=== PATIENT | female | born 1960 | race Caucasian/White ===

== ENCOUNTER 2023-02-10 07:48 | Day surgery (SDC) | payer MEDICARE, SELFPAY ==
[2023-02-08 14:17] VITALS: BMI 31.8
[2023-02-10] VITALS (11 sets, daily range): BP systolic 144–152; BP diastolic 67–90; PULSE 60–90; RESP 14–18; TEMP 36.1–36.4; O2SAT 95–99
--- NOTE | 2023-02-10 09:01 | P.PN_ITS ---
[facility] Disclaimer: The information contained in this section may have been updated after the patient was seen, as this information can be updated by other users. Medical History COPD (chronic obstructive pulmonary disease) Degenerative disc disease Former smoker History of kidney stones History of pacemaker History of seizure Migraines Sick sinus syndrome Surgical History H/O cervical spinal arthrodesis H/O: hysterectomy History of appendectomy History of extraction of renal calculus History of lumbar spinal fusion Hx of cholecystectomy Family History Other Family history of cancer Social History Smoking Status: Former smoker alcohol intake: never substance use type: denies use current occupational status: unemployed Travel in the last 8 weeks: None [facility] Anesthesia Checklist Patient Identification Patient Identification: Arm Band Structural Data Admitted From: Home Planned Operative Procedure/s: Pain Pump Explant, Pain Pump Implant Consent for Planned Operative Procedure(s) Verified: Yes Verified Documents: Surgical Consent and History and Physical NPO Status Verified Time NPO: 00:00 Additional verifications Anesthesia Reactions: No Hx Blood Transfusions: No Airway Assessment C-Spine Mobility Assessed: Yes TMJ Mobility Assessed: Yes Dentition: Good Dentition Neurological Assessment Level of Consciousness: Awake and Alert Anesthesia Plan Anesthesia Risk discussed: Yes Anesthesia Plan: Verified ASA Class: III Anesthesia Type: MAC
--- NOTE | 2023-02-10 12:18 | EXP.ANES.I ---
[facility] Anesthesia Record Part I Anesthesia Record I Intake, IV Amount: 500 Estimated blood loss (mL): 5 Urine output (mL): 0 Blood Pressure: 152/69 SaO2: 99 Pulse Rate: 74 Respiratory Rate: 14 Temperature: 97 F Patient is:: Drowsy and Stable Stable to PACU at:: 12:15
--- NOTE | 2023-02-10 12:39 | EXP.OP.NOTE ---
Date of procedure: 02/10/23 Pre-op Diagnosis:: End-of-life intrathecal Medtronic pain pump for degenerative disc disease of lumbar spine with lumbar radiculopathy symptoms Post-op Diagnosis:: Same Procedure performed:: Replacement intrathecal pain pump reservoir Surgeon:: Az Anderson MD NUCLEAR ENGINEER:: Other Anesthesia: MAC Estimated blood loss (mL): 1 Clinical Note:: This patient is a pleasant 62-year-old white female who is referred by Dr. Schmitz for replacement of her pain pump generator. Her Medtronic pain pump generator is at end-of-life. We will replace her pain pump generator today and refill her with intrathecal hydromorphone/bupivacaine and continue her at 5.5 mg/day. Operative findings:: None Operative note:: Informed consent was obtained risk and benefits of the procedure were explained to the patient. Patient was taken the operating room placed supine on the procedure table. She was prepped and draped in sterile fashion. The skin and subcutaneous tissues overlying the pain pump generator were anesthetized using lidocaine. I made an incision and dissected out the pain pump generator. We were able to access the sideport and withdraw CSF and medications through the catheter access port. We disconnected the connector and cut sutures. We reconnected to the new pain pump. Prior to this we filled the new pain pump with 20 mls of intrathecal hydromorphone 25 mg per ml plus bupivacaine 25 mg per ml. We were able to access the catheter access port and withdraw CSF through the sideport. This is after attaching the new pain pump to the connector and tying again with 0 silk suture. The pump was placed in the pocket. We did use a antibiotic tyrex pouch in the pocket. We were able to withdraw again through the catheter access port CSF. The incision was then closed with 2-0 Vicryl followed by 4-0 nylon. Dressings were placed. The patient was placed in an abdominal binder and taken recovery in stable condition. Patient tolerated the procedure well with no complications. Pump was interrogated and started back at 5.5 mg/day. Low reservoir alarm is 04/28/2023. We will send this patient back to Dr. Schmitz. We will follow-up as needed. Condition: stable Disposition: PACU Complications:: None
--- NOTE | 2023-02-10 13:49 | SUR.PHASEII ---
1316-administered 4mg morphine IV over 3mins . Pain 10/10 Pt complained of burning at IV site after administration. Flushed with saline , IV is not infiltrated. Pt stated that felt better after flushing. Applied cold compress to area 1350-pt has light red forearm and 2 blisters, 1-dime size and 1-quarter size, cold compress still applied. Pt denies difficulty swallowing or breathing. No rash, pain 5/10 . Localized reaction to vanc or morphine.
--- NOTE | 2023-02-10 14:01 | SUR.PHASEII ---
1350- pt stated she has had morphine before with no adverse reactions. Pt had vanc at least 45mins before admin of morphine
== END 2023-02-10 13:54 | disposition home or self-care (01) ==
PROVIDERS: Visit Provider Anesthesiology
DX: M51.16 Intervertebral disc disorders with radiculopathy, lumbar region (principal)
CPT/HCPCS: 62362; 96374; C1772; J2405